=== PATIENT | male | born 1965 | race Caucasian/White ===

== ENCOUNTER → 2020-10-14 11:58 | Outpatient (CLI) | payer MEDICARE, MEDICAID, SELFPAY ==
[2020-10-14 14:21] LABS: Absolute Neutrophil Count 2.2 X10^3/uL (2.0-7.7); Basophil# 0.02 X10^3/uL; Basophil% 0.5 % (0-1); Eosinophil# 0.11 X10^3/uL; Eosinophils% 2.6 % (0-5); Hemoglobin 15.7 g/dL (13.0-16.5); Lymphocyte % 32.9 % (19-41); Mean Corp Hgb Conc 34.1 g/dL (32-36); Mean Corpuscular Hgb 31.1 pg (27.0-32.0); Mean Corpuscular Volume 91.1 fL (80-94); Mean Platelet Vol. 9.8 fl (6.2-12.0); Monocyte# 0.49 X10^3/uL; Monocyte% 11.5 % (0-10); NRBC Flagged by Analyzer 0 % (0-5); Neutrophil # 2.22 X10^3/uL (2.7-7.7); Platelet Count 238 K/mm3 (150-450); RBC Distribution Width CV 12.8 % (11.6-14.6); RBC Distribution Width SD 41.7 fl (35.1-43.9); Red Blood Count 5.05 M/mm3 (4.6-6.2); White Blood Count 4.3 K/mm3 (4.4-11.0)
[2020-10-14 15:01] LABS: ALB/GLOB Ratio 0.8 RATIO (0.9-2.4); AST(SGOT) 17 U/L (15-37); Alanine Aminotransfer ALT/SGPT 25 U/L (16-61); Albumin, Serum 3.5 g/dL (3.2-5.0); Alkaline Phosphatase 52 U/L (45-117); Anion Gap 5 (5-15); BUN 10 mg/dL (7-18); BUN/Creat Ratio 10.5 RATIO (10-20); Calcium,Total 8.4 mg/dL (8.5-10.1); Chloride 108 mmol/L (98-107); Creatinine, Serum 0.95 mg/dL (0.70-1.30); EST Glomerular Filtration Rate 87 mL/min (>60); Est Glom Filt Rate - Afr Amer 105 mL/min (>60); Globulin 4.3 g/dL (2.2-4.2); Glucose 63 mg/dL (74-106); Potassium 3.7 mmol/L (3.5-5.1); Protein, Total 7.8 g/dL (6.4-8.2); Sodium Level 141 mmol/L (136-145)
[2020-10-14 15:58] LABS: Chlamydia Trachomatis by PCR Negative (Negative); Neisserai gonorrhoeae by PCR Negative (Negative); Probe Check PASS; Sample Adequacy Control PASS; Specimen Processing Control PASS
[2020-10-14 16:57] LABS: HIV - WCH Preliminary Reactive (Nonreactive); Hepatitis B Surface Antibody Reactive; Hepatitis B Surface Antigen Non-Reactive (Nonreactive); Hepatitis C Antibody Non-Reactive (Nonreactive); Syphilis Antibodies Non-reactive
[2020-10-17 14:44] LABS: HIV-1 RNA by PCR, Quant. 254000 copies/mL (.); LOG10 HIV-1 RNA 5.405 (.)
[2020-10-18 06:37] LABS: Absolute CD4 Helper 438 /uL (359-1519); Basophils (Absolute) 0 x10E3/uL (0.0-0.2); Eosinophils 3 % (Not Estab.); Eosinophils (Absolute) 0.1 x10E3/uL (0.0-0.4); Hematocrit 46.4 % (37.5-51.0); Hemoglobin 15.7 g/dL (13.0-17.7); Immature Granulocytes 1 % (Not Estab.); Immature Granulocytes Absolute 0 x10E3/uL (0.0-0.1); Lymphs 33 % (Not Estab.); Lymphs (Absolute) 1.3 x10E3/uL (0.7-3.1); MCH 31.2 pg (26.6-33.0); MCHC 33.8 g/dL (31.5-35.7); MCV 92 fL (79-97); Monocytes 11 % (Not Estab.); Monocytes (Absolute) 0.4 x10E3/uL (0.1-0.9); Neutrophils 51 % (Not Estab.); Neutrophils (Absolute) 2.1 x10E3/uL (1.4-7.0); Percent % CD4 Pos. Lymph. 33.7 % (30.8-58.5); Platelets 238 x10E3/uL (150-450); QNTFERON TB Mitogen Value > 10.00 IU/mL (.); QNTFERON TB Nil Value 0.12 IU/mL (.); QNTFERON TB1+ Ag Value 0.16 IU/mL (.); QNTFERON TB2+ Ag Value 0.12 IU/mL (.); RBC Count 5.04 x10E6/uL (4.14-5.80); RDW 13.1 % (11.6-15.4)
[2020-10-18 07:43] LABS: Hepatitis B Core Ab Total Negative (Negative); QNTIFERON TB Positive Criteria Negative (Negative)
== END ==
PROVIDERS: Visit Provider Nurse Practitioner Adult Health
DX: B20 Human immunodeficiency virus [HIV] disease (principal); Z13.9 Encounter for screening, unspecified; Z91.89 Other specified personal risk factors, not elsewhere classified
CPT/HCPCS: 36415; 80053; 85025; 86361; 86480; 86703; 86704; 86706; 86803; 87340; 87491; 87536; 87591

== ENCOUNTER → 2020-11-27 10:03 | Outpatient (CLI) | payer MEDICARE, MEDICAID, SELFPAY ==
[2020-11-29 13:13] LABS: HIV-1 RNA by PCR, Quant. 1640 copies/mL (.); LOG10 HIV-1 RNA 3.215 (.)
[2020-11-30 16:08] LABS: Absolute CD4 Helper 689 /uL (359-1519); Basophils (Absolute) 0 x10E3/uL (0.0-0.2); Eosinophils 1 % (Not Estab.); Eosinophils (Absolute) 0.1 x10E3/uL (0.0-0.4); Hematocrit 52.1 % (37.5-51.0); Hemoglobin 18.2 g/dL (13.0-17.7); Immature Granulocytes 1 % (Not Estab.); Lymphs 32 % (Not Estab.); Lymphs (Absolute) 2.1 x10E3/uL (0.7-3.1); MCH 31.4 pg (26.6-33.0); MCHC 34.9 g/dL (31.5-35.7); MCV 90 fL (79-97); Monocytes 9 % (Not Estab.); Monocytes (Absolute) 0.6 x10E3/uL (0.1-0.9); Neutrophils 57 % (Not Estab.); Neutrophils (Absolute) 3.7 x10E3/uL (1.4-7.0); Percent % CD4 Pos. Lymph. 32.8 % (30.8-58.5); Platelets 275 x10E3/uL (150-450); RDW 13.4 % (11.6-15.4); WBC Count 6.6 x10E3/uL (3.4-10.8)
[2020-11-30 18:45] LABS: Immature Granulocytes Absolute 0.1 x10E3/uL (0.0-0.1)
== END ==
DX: B20 Human immunodeficiency virus [HIV] disease (principal)
CPT/HCPCS: 36415; 86361; 87536

== ENCOUNTER 2023-02-20 12:03 | Outpatient (CLI) | payer MEDICARE, MEDICAID, SELFPAY ==
[2023-02-20 13:02] LABS: Absolute Lymphocyte Count 3.64 X10^3/uL (0.83-4.51); Absolute Neutrophil Count 2.6 X10^3/uL (2.0-7.7); Basophil# 0.04 X10^3/uL; Basophil% 0.6 % (0-1); Eosinophil# 0.04 X10^3/uL; Eosinophils% 0.6 % (0-5); Hematocrit 44.9 % (40-54); Hemoglobin 15.2 g/dL (13.0-16.5); Lymphocyte # 3.64 X10^3/ul (0.83-4.51); Lymphocyte % 50.6 % (19-41); Mean Corp Hgb Conc 33.9 g/dL (32-36); Mean Corpuscular Hgb 31.2 pg (27.0-32.0); Mean Corpuscular Volume 92.2 fL (80-94); Mean Platelet Vol. 10.6 fl (6.2-12.0); Monocyte# 0.76 X10^3/uL; Monocyte% 10.6 % (0-10); NRBC Flagged by Analyzer 0 % (0-5); Neutrophil # 2.62 X10^3/uL (2.7-7.7); Neutrophil % 36.3 % (47-70); Platelet Count 253 K/mm3 (150-450); RBC Distribution Width CV 12.8 % (11.6-14.6); RBC Distribution Width SD 42.8 fl (35.1-43.9); Red Blood Count 4.87 M/mm3 (4.6-6.2); White Blood Count 7.2 K/mm3 (4.4-11.0)
[2023-02-20 13:32] LABS: ALB/GLOB Ratio 0.6 RATIO (0.9-2.4); AST(SGOT) 21 U/L (15-37); Alanine Aminotransfer ALT/SGPT 30 U/L (16-61); Albumin, Serum 2.9 g/dL (3.2-5.0); Alkaline Phosphatase 81 U/L (45-117); Anion Gap 5 (5-15); BUN 11 mg/dL (7-18); BUN/Creat Ratio 12.6 RATIO (10-20); Calcium,Total 8.6 mg/dL (8.5-10.1); Chloride 107 mmol/L (98-107); Cholesterol 134 mg/dL (200); Creatinine, Serum 0.88 mg/dL (0.70-1.30); EST Glomerular Filtration Rate 95 mL/min (>60); Est Glom Filt Rate - Afr Amer 115 mL/min (>60); Globulin 5.1 g/dL (2.2-4.2); Glucose 96 mg/dL (74-106); High Density Lipoprotein 21 mg/dL; Potassium 3.9 mmol/L (3.5-5.1); Sodium Level 137 mmol/L (136-145); Triglycerides 430 mg/dL
[2023-02-20 13:33] LABS: Amphetamine Urine VISTA NEGATIVE (<1000 ng/mL); Barbiturate Urine VISTA NEGATIVE (< 200 ng/mL); Benzodiazepine Urine VISTA NEGATIVE (< 200 ng/mL); Cocaine Urine VISTA NEGATIVE (< 300 ng/mL); Ecstacy Urine VISTA NEGATIVE (< 500 ng/mL); Methadone Urine VISTA NEGATIVE (< 300 ng/mL); PCP Urine VISTA NEGATIVE (< 25 ng/mL); THC Urine VISTA NEGATIVE (< 50 ng/mL); Vista UDS pH Range 5
[2023-02-21 14:10] LABS: HIV-1 RNA by PCR, Quant. 432000 copies/mL (.); LOG10 HIV-1 RNA 5.635 (.)
[2023-02-21 15:08] LABS: Absolute CD4 Helper 391 /uL (359-1519); Basophils (Absolute) 0 x10E3/uL (0.0-0.2); Eosinophils 1 % (Not Estab.); Eosinophils (Absolute) 0.1 x10E3/uL (0.0-0.4); Hematocrit 44.8 % (37.5-51.0); Hemoglobin 15.3 g/dL (13.0-17.7); Immature Granulocytes 1 % (Not Estab.); Immature Granulocytes Absolute 0.1 x10E3/uL (0.0-0.1); Lymphs 50 % (Not Estab.); Lymphs (Absolute) 3.1 x10E3/uL (0.7-3.1); MCH 31.5 pg (26.6-33.0); MCHC 34.2 g/dL (31.5-35.7); MCV 92 fL (79-97); Monocytes 9 % (Not Estab.); Monocytes (Absolute) 0.6 x10E3/uL (0.1-0.9); Neutrophils 39 % (Not Estab.); Neutrophils (Absolute) 2.4 x10E3/uL (1.4-7.0); Percent % CD4 Pos. Lymph. 12.6 % (30.8-58.5); Platelets 268 x10E3/uL (150-450); RBC Count 4.85 x10E6/uL (4.14-5.80); RDW 13.6 % (11.6-15.4); WBC Count 6.2 x10E3/uL (3.4-10.8)
== END 2023-02-20 23:59 | disposition home or self-care (01) ==
PROVIDERS: Referring Provider Nurse Practitioner Family; Visit Provider Nurse Practitioner Family
DX: B20 Human immunodeficiency virus [HIV] disease (principal); F19.939 Other psychoactive substance use, unspecified with withdrawal, unspecified; E78.5 Hyperlipidemia, unspecified
CPT/HCPCS: 36415; 80053; 80061; 80307; 85025; 86361; 87536

== ENCOUNTER → 2024-02-22 | Outpatient (CLI) | payer MEDICARE, MEDICAID, SELFPAY ==
--- NOTE | 2024-02-22 14:20 | RAD_ITS ---
EXAM: XR CHEST, 2 VIEWS CLINICAL INDICATION: Acute bronchitis, unspecified TECHNIQUE: Frontal and lateral views of the chest. COMPARISON: No relevant prior studies available. FINDINGS: LUNGS AND PLEURAL SPACES: Bilateral lower lobe, right middle lobe, and lingular ill-defined opacities in the atelectasis or pneumonia. No pneumothorax. No effusion. HEART: No significant abnormality. Cardiac silhouette not enlarged. MEDIASTINUM: Central airways and mediastinal contour are unremarkable. BONES/JOINTS: No significant abnormality. No acute fracture. SOFT TISSUES: No significant abnormality. RAD/Chest PA and Lateral IMPRESSION: Bilateral lower lobe, right middle lobe, and lingular ill-defined opacities in the atelectasis or pneumonia. Electronically Signed: Obdulio Evans DO at 22:39 EDT ,
== END | disposition home or self-care (01) ==
PROVIDERS: Referring Provider Nurse Practitioner Family; Visit Provider Nurse Practitioner Family
DX: J20.9 Acute bronchitis, unspecified (principal)
CPT/HCPCS: 71046